=== PATIENT | male | born 1955 | race Hispanic/Latino ===

== ENCOUNTER → 2020-06-11 | Outpatient (CLI) | payer MEDICAID ==
[~2020-06-11] MED LIST: REGADENOSON 0.4 MG/5 ML PF SYG IVP SCH
== END | disposition home or self-care (01) ==
LOC: SHCH 07:38
PROVIDERS: ATTEND Internal Medicine Cardiovascular Disease
DX: R06.09 Other forms of dyspnea (principal)
CPT/HCPCS: 78452; 93017; 96374; A9500 ×2; J2785

== ENCOUNTER → 2025-09-10 | Outpatient (CLI) | payer OTHER, MEDICAID ==
--- NOTE | 2025-09-10 23:50 | HMCIMG ---
ULTRASOUND SCROTUM WITH DOPPLER CLINICAL INDICATION Enlarged testicles. History of epididymitis. Evaluate for acute pathology. COMPARISON None. TECHNIQUE Real-time pemberton scale ultrasound evaluation of the scrotal contents was performed with color and spectral Doppler interrogation of the testes and epididymides. RIGHT TESTICLE The right testicle measures approximately 4 x 2.3 x 3.0 cm. The testicular parenchyma demonstrates homogeneous echotexture without focal mass or calcification. Color and spectral Doppler demonstrate normal intratesticular arterial and venous flow. A small right hydrocele is present. The right epididymal head measures approximately 0.3 x 0.4 x 0.2 cm and demonstrates mild enlargement without increased vascularity, compatible with chronic or resolving epididymal change. LEFT TESTICLE The left testicle measures approximately 4.1 x 2.4 x 3.5 cm. The testicular parenchyma demonstrates homogeneous echotexture without focal mass or calcification. Color and spectral Doppler demonstrate normal intratesticular arterial and venous flow. A small left hydrocele is present. The left epididymal head measures approximately 0.6 x 0.2 x 0.1 cm and demonstrates mild enlargement without increased vascularity, compatible with chronic or resolving epididymal change. OTHER FINDINGS No varicocele is identified bilaterally. No scrotal wall thickening or complex fluid collection is seen. IMPRESSION * Normal bilateral testicular echotexture and preserved intratesticular blood flow with no evidence of testicular torsion or intratesticular mass. * Mild bilateral epididymal enlargement without hyperemia, favored to represent chronic or resolving epididymitis. * Small bilateral hydroceles. RECOMMENDATIONS According to ACR Appropriateness Criteria, no emergent imaging follow-up is required given preserved testicular perfusion. Clinical correlation is recommended. If symptoms persist, worsen, or if there is concern for acute infection, repeat scrotal ultrasound or urologic consultation may be considered. /Grant
== END ==
LOC: RAH 09:54
PROVIDERS: ATTEND Family Medicine
DX: N43.3 Hydrocele, unspecified (principal); N50.89 Other specified disorders of the male genital organs
CPT/HCPCS: 76870